=== PATIENT | female | born 1965 | race Caucasian/White ===

== ENCOUNTER 2018-02-14 16:01 | Inpatient (IN) | payer OTHER, MEDICAID ==
--- NOTE | 2018-02-14 16:26 | EDPHY ---
H & P Stated Complaint: R lower leg wound swelling - Personal History Current Tetanus Diphtheria and Acellular Pertussis (TDAP): No - Medical/Surgical History Hx Asthma: No Hx Chronic Respiratory Disease: No Hx Diabetes: Yes Hx Cardiac Disease: Yes Hx Renal Disease: No Hx Cirrhosis: No Hx Alcoholism: No Hx HIV/AIDS: No Hx Splenectomy or Spleen Trauma: No Other PMH: CHF IDDM neuropathy - Social History Smoking Status: Never smoked Time Seen by Provider: 02/14/18 16:09 HPI/ROS: CHIEF COMPLAINT: "My leg looks worse and smells worse" HISTORY OF PRESENT ILLNESS: 52-year-old female history of peripheral vascular disease, dhv-byxaawk-bqchzxilf diabetes, complaining of 2-3 months of right calf lesion which has been slow to heal. She last saw her primary care provider 5 days ago for same complaint and notes that in the past 5 days as present, progressively more erythematous and more foul-smelling as well as more painful. PRIMARY CARE PROVIDER: Dr. Adis Tyler REVIEW OF SYSTEMS: 10 systems reviewed and negative with the exception of the elements mentioned in the history of present illness PAST MEDICAL & SURGICAL HISTORY: Insulin-dependent diabetes. Gastric bypass. SOCIAL HISTORY: . Nonsmoker. PHYSICAL EXAM (Prior to examination, patient consented to physical exam, hands were washed and my usual and customary physical exam procedures followed) 1) GENERAL: obese, alert and oriented. Foul smell present in room. Appears to be in no acute distress. Answering questions appropriately 2) HEAD: Normocephalic, atraumatic 3) HEENT: Pupils equal, round, reactive to light bilaterally. Sclera anicteric. 4) NECK: Full range of motion, no meningeal signs. 5) LUNGS: Clear auscultation bilaterally, no wheezes, no rhonchi, no retractions. 6) HEART: Regular rate and rhythm, no murmur, no heave, no gallop. 7) ABDOMEN: No guarding, no rebound, no focal tenderness, negative McBurney's, negative Hudson's, negative Rovsing's, negative peritoneal sign, 8) MUSCULOSKELETAL: Right lower extremity: Right medial and posterior calf region multiple erythematous lesions at different stages of healing with drainage and foul smell. No crepitus. DP pulses are appreciable. Capillary refill less than 2 sec. Soft compartments., otherwise Moving all extremities, no focal areas of tenderness, no obvious trauma. No peripheral edema or discoloration. 9) BACK: No CVA tenderness, no midline vertebral tenderness, no fluctuance, no step-off, no obvious trauma, no visual or palpable abnormality. 10) SKIN: No rash, no petechiae. 11) Psychiatric: Patient is oriented X 3, there is no agitation. 12) rectal (with tech Francisca at bedside): Normal rectal tone, brown stool on glove DIFFERENTIAL DIAGNOSIS: In no particular order including but not limited to cellulitis, abscess, necrotizing fasciitis, compartment syndrome, osteomyelitis (Garret,William Dooley) Constitutional: Initial Vital Signs Temperature (C) 36.7 C 02/14/18 16:14 Heart Rate 91 02/14/18 16:14 Respiratory Rate 18 02/14/18 16:14 Blood Pressure 135/79 H 02/14/18 16:14 O2 Sat (%) 95 02/14/18 16:14 O2 Delivery Mode Nasal Cannula O2 (L/minute) 3 Allergies/Adverse Reactions: latex Allergy (Unknown, Verified 02/14/18 16:48) trouble breathing morphine Allergy (Unknown, Verified 02/14/18 16:49) hives, trouble breathing neosponin Allergy (Unknown, Uncoded 06/02/17 14:08) blisters Home Medications: Medication Instructions Recorded Allopurinol [Allopurinol 100 MG 200 mg PO BID 02/14/18 (*)] Cephalexin [Keflex (*)] 500 mg PO QID 02/14/18 Fluconazole [Diflucan (*)] 150 mg PO Q2D 02/14/18 Furosemide [Lasix 40 MG (*)] 40 mg PO DAILY 02/14/18 Gabapentin [Neurontin 100 MG (*)] 100 mg PO TID 02/14/18 HYDROmorphone HCL [Dilaudid 2 mg 2 mg PO TID PRN 02/14/18 (*)] Insulin Aspart [novoLOG] 10 unit SC AC 02/14/18 Insulin Detemir [Levemir] 20 unit SQ HS 02/14/18 Lansoprazole [Prevacid] 30 mg PO HS 02/14/18 Ondansetron Odt [Zofran Odt 4 mg 4 mg PO AC 02/14/18 (*)] Potassium Cl [Klor-Con 20 meq (*)] 40 meq PO DAILY 02/14/18 Ziprasidone HCl [Geodon 40MG (*)] 160 mg PO HS 02/14/18 busPIRone [Buspar (*)] 10 mg PO TID 02/14/18 hydrOXYzine HCL [hydrOXYzine HCL 25 mg PO Q3WA PRN 02/14/18 (RX)] lamoTRIgine [LamICTAL 100 MG (*)] 300 mg PO HS 02/14/18 oxyCODONE HCL [Roxicodone] 7.5 mg PO Q3WA PRN 02/14/18 oxyCODONE IR [Oxycodone Ir (*)] 10 mg PO TID 02/14/18 Medical Decision Making ED Course/Re-evaluation: 4:50 p.m.: I reviewed the patient's medical records from [facility] dated 01/25/2018 which point she had x-ray of the tibia fibula negative for acute bony abnormality and no DVT seen on ultrasound however was noted that calf veins were unable to visualize secondary to overlying soft tissue edema. White count of 6000 at that time, hemoglobin and hematocrit of 7.7 and 27.6. She was given prescription for Keflex discharged. 5:24 p.m.: Re-evaluation. No definitive evidence of osteomyelitis on x-ray. Of concerned this patient is her progressively worsening right lower extremity erythema, foul smell. I recommended admission to hospital for IV antibiotics, possible wound debridement possible infectious disease consultation. Patient is agreeable with this. Care of patient under supervision of secondary supervising physician Dr Anthony with whom I discussed case. 5:41 p.m.: Patient requesting Dilaudid and Phenergan 5:50 p.m.: Consultation with Dr. Kaushal Yao hospitalist to admit patient. ( William Combs) I did not see this patient while she was in the emergency department. However her care was discussed with the PA while the patient was in the department. I agree with treatment plan and management (Azar Anthony) - Data Points Laboratory Results: Laboratory Results 02/14/18 16:08 02/14/18 16:08 Microbiology Results: MICROBIOLOGY 02/14/18 17:20 Blood Blood Culture - Preliminary Staphylococcus Epidermidis 02/14/18 17:20 Blood Blood Panel (PCR) - Final 02/14/18 17:40 Blood Blood Culture - Final Streptococcus Sanguinis MRSA 02/14/18 17:40 Blood Blood Panel (PCR) - Final MRSA Streptococcus Medications Given: Allopurinol (Allopurinol) 200 mg PO BID [facility] Stop: 08/13/18 20:59 Last Admin: 02/17/18 09:08 Dose: 200 mg Buspirone HCl (Buspar) 10 mg PO TID [facility] Stop: 08/13/18 21:59 Last Admin: 02/17/18 09:08 Dose: 10 mg Diphenhydramine HCl (Benadryl Injection) 12.5 - 25 mg IVP Q4HRS PRN PRN Reason: Itching Stop: 08/14/18 05:30 Last Admin: 02/15/18 05:42 Dose: 25 mg Enoxaparin Sodium (Lovenox) 40 mg SC DAILY [facility] Stop: 08/14/18 08:59 Last Admin: 02/17/18 09:20 Dose: 40 mg Fentanyl (Sublimaze) 50 - 100 mcg IVP Q4HRS PRN PRN Reason: Pain, Severe Unable to Take PO Stop: 02/25/18 10:03 Last Admin: 02/17/18 09:03 Dose: 100 mcg Fluconazole (Diflucan) 100 mg PO DAILY [facility] Stop: 03/17/18 17:29 Last Admin: 02/17/18 09:08 Dose: 100 mg Furosemide (Lasix) 40 mg PO DAILY [facility] Stop: 08/14/18 08:59 Last Admin: 02/17/18 09:08 Dose: 40 mg Gabapentin (Neurontin) 300 mg PO TID [facility] Stop: 08/13/18 21:59 Last Admin: 02/17/18 09:08 Dose: 300 mg Hydromorphone HCl (Dilaudid) 2 mg PO Q6HRS PRN PRN Reason: Pain, Breakthrough Stop: 02/24/18 19:53 Last Admin: 02/17/18 10:12 Dose: 2 mg Hydroxyzine HCl (Hydroxyzine Hcl) 25 mg PO Q3WA PRN PRN Reason: ITCHING/NERVE PAIN Stop: 08/14/18 09:42 Last Admin: 12/20/18 10:40 Dose: 25 mg Vancomycin HCl 1.5 gm/ (Dextrose) 250 mls @ 166.67 mls/hr IV Q12H [facility] PRN Reason: Protocol Stop: 03/18/18 08:59 Last Admin: 02/17/18 09:13 Dose: 250 mls Insulin Glargine (Lantus Syringe) 22 units SC HS [facility] Stop: 08/13/18 20:59 Last Admin: 02/16/18 23:45 Dose: 22 units Insulin Human Lispro (Humalog Lispro) 0 unit SC TIDMEAL [facility] PRN Reason: Protocol Stop: 08/14/18 07:59 Last Admin: 02/17/18 12:35 Dose: 6 units Lamotrigine (Lamictal) 300 mg PO HS [facility] Stop: 08/13/18 20:59 Last Admin: 02/16/18 23:44 Dose: 300 mg Ondansetron HCl (Zofran) 4 mg IVP Q4HRS PRN PRN Reason: Nausea/Vomiting, Can't Take PO Stop: 08/13/18 17:46 Last Admin: 02/17/18 13:11 Dose: 4 mg Ondansetron HCl (Zofran Odt) 4 mg PO Q4HRS PRN PRN Reason: Nausea/Vomiting, Use 1st Stop: 08/13/18 17:46 Last Admin: 02/16/18 21:19 Dose: 4 mg Oxycodone HCl (Oxycodone Ir) 7.5 mg PO Q3WA PRN PRN Reason: SEVERE PAIN Stop: 02/27/18 13:49 Last Admin: 02/17/18 14:09 Dose: 7.5 mg Pantoprazole Sodium (Protonix) 40 mg PO HS [facility] Stop: 08/14/18 20:59 Last Admin: 02/16/18 21:23 Dose: 40 mg Potassium Chloride (Klor-Con) 40 meq PO DAILY [facility] Stop: 08/14/18 08:59 Last Admin: 02/17/18 09:08 Dose: 40 meq Ziprasidone (Geodon) 160 mg PO HS [facility] Stop: 08/13/18 20:59 Last Admin: 02/16/18 23:44 Dose: 160 mg Discontinued Medications Gabapentin (Neurontin) 100 mg PO TID [facility] Stop: 08/13/18 21:59 Last Admin: 02/15/18 17:09 Dose: 100 mg Hydromorphone HCl (Dilaudid) 1 mg IVP EDNOW ONE Stop: 02/14/18 17:42 Last Admin: 02/14/18 17:47 Dose: 1 mg Hydromorphone HCl (Dilaudid) 0.4 mg IVP Q4HRS PRN PRN Reason: Pain, Severe Unable to Take PO Stop: 02/24/18 21:29 Last Admin: 02/15/18 02:50 Dose: 0.4 mg Hydromorphone HCl (Dilaudid) 0.5 - 1 mg IVP Q3HRS PRN PRN Reason: Pain, Severe Unable to Take PO Stop: 02/24/18 21:29 Last Admin: 02/15/18 08:58 Dose: 1 mg Cefazolin Sodium/Dextrose (Ancef) 100 mls @ 200 mls/hr IV EDNOW ONE PRN Reason: Protocol Stop: 02/14/18 17:04 Last Admin: 02/14/18 17:34 Dose: 100 mls Vancomycin HCl 1.5 gm/ (Dextrose) 250 mls @ 166.667 mls/hr IV Q12H [facility] Stop: 03/16/18 19:29 Last Admin: 02/14/18 20:01 Dose: 250 mls Vancomycin HCl 1.5 gm/ (Dextrose) 250 mls @ 166.667 mls/hr IV Q12H [facility] Stop: 03/17/18 08:59 Last Admin: 02/15/18 09:05 Dose: 250 mls Cefazolin Sodium/Dextrose (Ancef) 100 mls @ 200 mls/hr IV Q8H [facility] PRN Reason: Protocol Stop: 03/17/18 18:59 Last Admin: 02/16/18 04:06 Dose: 100 mls Insulin Glargine (Lantus Syringe) 20 units SC HS [facility] Stop: 08/13/18 20:59 Last Admin: 02/15/18 20:24 Dose: 20 units Lansoprazole (Prevacid Susp (Peds)) 30 mg PO HS [facility] Stop: 08/13/18 20:59 Last Admin: 02/14/18 20:39 Dose: 30 mg Morphine Sulfate (Morphine) 1 - 2 mg IVP Q1HR PRN PRN Reason: Pain, Severe Unable to Take PO Stop: 02/24/18 19:32 Last Admin: 02/15/18 07:48 Dose: 2 mg Promethazine HCl (Phenergan) 25 mg IVP EDNOW ONE Stop: 02/14/18 17:42 Last Admin: 02/14/18 17:47 Dose: 25 mg Departure - Departure Disposition: [facility] Inpatient Acute Clinical Impression: Cellulitis of lower extremity Qualifiers: Laterality: right Qualified Code(s): L03.115 - Cellulitis of right lower limb Condition: Fair
[2018-02-14 16:33] LABS: PLATELET COUNT 239 10^3/uL (150-400)
[2018-02-14] MEDS ORDERED: ceFAZolin 2 GM/DEXTROSE 100 ML IV ONE (16:35)
[2018-02-14 16:45] LABS: INR 1.07 (0.83-1.16); PROTIME(PATIENT) 14.1 SEC (12.0-15.0)
[2018-02-14] MEDS ORDERED: HYDROmorphONE/DILAUDID 1 MG/ML INJ IVP ONE (17:41)
[2018-02-14] MEDS ORDERED: PROMETHAZINE HCL 25 MG/ML INJ IVP ONE (17:41)
[2018-02-14] MEDS ORDERED: ACETAMINOPHEN 325 MG TAB PO PRN (17:47)
--- NOTE | 2018-02-14 19:10 | PDGENHP ---
History and Physical - Chief Complaint Right leg swelling, redness, and weeping wound - History of Present Illness 52 y/o female with an extensive history including diabetes and recurrent cellulitis presents to the emergency room with right leg erythema, edema, and purulent weeping wound. This is my first encounter with the pt. She was seen in the emergency room and in no apparent respiratory distress however she did seem uncomfortable with her leg, especially movement of her leg. Per pt, 3 months ago her right daniels/calf region was red, swollen and painful. D/t the reoccurrence, f/u'ed with Dr. Azar Bello and was placed on suppressive amoxicillin 500 mg BID for 30 days. Because she has recurrent vaginitis while on antibiotic therapy, she was also instructed to take fluconazole 150 mg Q3 days. As stated before, the pt presents with an increase in swelling, edema, and weeping wound. Doppler was negative for DVT. Tibia/fibula x-ray was negative for any erosive changes or bone abnormalities. She is being admitted for further diagnostic work-up of her right lower extremity. Vital Signs 151/75 81 HR 16 Respirations 36.7c 97% 3L NC (baseline for pt, wears oxygen d/t CHF) History Information - Allergies/Home Medication List Allergies/Adverse Reactions: latex Allergy (Unknown, Verified 02/14/18 16:48) trouble breathing morphine Allergy (Unknown, Verified 02/14/18 16:49) hives, trouble breathing neosponin Allergy (Unknown, Uncoded 06/02/17 14:08) blisters Home Medications: Allopurinol [Allopurinol 100 MG (*)] 200 mg PO BID 02/14/18 [Last Taken 08:00] Cephalexin [Keflex (*)] 500 mg PO QID 02/14/18 [Last Taken 02/14/18 12:00] Fluconazole [Diflucan (*)] 150 mg PO Q2D 02/14/18 [Last Taken 02/13/18] Furosemide [Lasix 40 MG (*)] 40 mg PO DAILY 02/14/18 [Last Taken 02/13/18] Gabapentin [Neurontin 100 MG (*)] 100 mg PO TID 02/14/18 [Last Taken 02/14/18 12 :00] HYDROmorphone HCL [Dilaudid 2 mg (*)] 2 mg PO TID PRN 02/14/18 [Last Taken Unknown] Insulin Aspart [novoLOG] 10 unit SC AC 02/14/18 [Last Taken 02/14/18 12:00] Insulin Detemir [Levemir] 20 unit SQ HS 02/14/18 [Last Taken 02/13/18] Lansoprazole [Prevacid] 30 mg PO HS 02/14/18 [Last Taken 02/13/18] Ondansetron Odt [Zofran Odt 4 mg (*)] 4 mg PO AC 02/14/18 [Last Taken 02/14/18 12:00] Potassium Cl [Klor-Con 20 meq (*)] 40 meq PO DAILY 02/14/18 [Last Taken 02/13/18 ] Ziprasidone HCl [Geodon 40MG (*)] 160 mg PO HS 02/14/18 [Last Taken 02/13/18] busPIRone [Buspar (*)] 10 mg PO TID 02/14/18 [Last Taken 02/12/18] hydrOXYzine HCL [hydrOXYzine HCL (RX)] 25 mg PO Q3WA PRN 02/14/18 [Last Taken ] lamoTRIgine [LamICTAL 100 MG (*)] 300 mg PO HS 02/14/18 [Last Taken 02/13/18] oxyCODONE HCL [Roxicodone] 7.5 mg PO Q3WA PRN 02/14/18 [Last Taken 02/14/18] oxyCODONE IR [Oxycodone Ir (*)] 10 mg PO TID 02/14/18 [Last Taken 02/14/18] I have personally reviewed and updated: family history, medical history, social history, surgical history Past Medical History: Diabetes II, Hypothyroidism, B12 deficiency, Gout, Generalized Anxiety Disorder, Opiate dependence, Chronic systolic CHF, Chronic hypoxemic respiratory failure, ventral hernia, fatty liver disease, Chronic cellulitis, Sleep apnea, Bipolar disorder, intestinal malabsorption, morbid obesity, vitamin d deficiency, nocturnal hypoxia - Surgical History Additional surgical history: Appendectomy, gastric bypass (2000) - Family History Positive for: non-pertinent - Social History Smoking Status: Never smoked Alcohol Use: Rarely Drug Use: None Additional social history: Lives in mobile home with her , Jose. On disability Review of Systems Review of Systems: ROS: 10pt was reviewed & negative except for what was stated in HPI & below Constitutional: Reports: recent injury EENMT: Reports: no symptoms Cardiac: Reports: no symptoms Respiratory: Reports: no symptoms Gastrointestinal: Reports: no symptoms Genitourinary: Reports: no symptoms Muscolosketal: Reports: calf pain Skin: Reports: change in color, lesions, rash Neurological: Reports: pre-existing deficit Hematologic/Lymphatic: Reports: no symptoms Immunologic/Allergy: Reports: no symptoms Physical Exam Physical Exam: Lab data and imaging reviewed Tibia/fibula x-ray: no bone abnormalities. Doppler: No DVT. Temp Pulse Resp BP Pulse Ox 36.7 C 85 16 148/80 H 99 02/14/18 18:26 02/14/18 18:26 02/14/18 18:26 02/14/18 18:26 02/14/18 18:26 O2 (L/minute) 3 Constitutional: obese, uncomfortable Eyes: PERRL, anicteric sclera, EOMI Ears, Nose, Mouth, Throat: moist mucous membranes, hearing normal, ears appear normal, no oral mucosal ulcers Cardiovascular: regular rate and rhythym, no murmur, rub, or gallop, No edema Peripheral Pulses: 1+: dorsalis-pedis (R) (Radial 2+), 2+: dorsalis-pedis (L) ( Radial 2+) Respiratory: no respiratory distress, no rales or rhonchi, clear to auscultation Gastrointestinal: normoactive bowel sounds, soft, non-tender abdomen, no palpable masses Genitourinary: no bladder fullness, no bladder tenderness Skin: erythema, rash, other (right medial daniels with purulent weeping wound and posterior calf. Warm) Musculoskeletal: pain with ROM (RLE) Psychiatric: interacting appropriately, not anxious, not encephalopathic, thought process linear Lymph, Heme, Immunologic: no cervical LAD, no supraclavicular LAD Lab Data & Imaging Review 02/14/18 16:08 02/14/18 16:08 WBC 8.45 10^3/uL (3.80-9.50) 02/14/18 16:08 RBC 4.11 10^6/uL (4.18-5.33) L 02/14/18 16:08 Hgb 7.4 g/dL (12.6-16.3) L 02/14/18 16:08 Hct 26.4 % (38.0-47.0) L 02/14/18 16:08 MCV 64.2 fL (81.5-99.8) L 02/14/18 16:08 MCH 18.0 pg (27.9-34.1) L 02/14/18 16:08 MCHC 28.0 g/dL (32.4-36.7) L 02/14/18 16:08 RDW 18.9 % (11.5-15.2) H 02/14/18 16:08 Plt Count 239 10^3/uL (150-400) 02/14/18 16:08 MPV 8.9 fL (8.7-11.7) 02/14/18 16:08 Neut % (Auto) 69.2 % (39.3-74.2) 02/14/18 16:08 Lymph % (Auto) 21.9 % (15.0-45.0) 02/14/18 16:08 [place] % (Auto) 7.3 % (4.5-13.0) 02/14/18 16:08 Eos % (Auto) 0.6 % (0.6-7.6) 02/14/18 16:08 Baso % (Auto) 0.6 % (0.3-1.7) 02/14/18 16:08 Nucleat RBC Rel Count 0.0 % (0.0-0.2) 02/14/18 16:08 Absolute Neuts (auto) 5.85 10^3/uL (1.70-6.50) 02/14/18 16:08 Absolute Lymphs (auto) 1.85 10^3/uL (1.00-3.00) 02/14/18 16:08 Absolute Monos (auto) 0.62 10^3/uL (0.30-0.80) 02/14/18 16:08 Absolute Eos (auto) 0.05 10^3/uL (0.03-0.40) 02/14/18 16:08 Absolute Basos (auto) 0.05 10^3/uL (0.02-0.10) 02/14/18 16:08 Absolute Nucleated RBC 0.00 10^3/uL (0-0.01) 02/14/18 16:08 Immature Gran % 0.4 % (0.0-1.1) 02/14/18 16:08 Immature Gran # 0.03 10^3/uL (0.00-0.10) 02/14/18 16:08 Platelet Estimate ADEQUATE (ADEQ) 02/14/18 16:08 Polychromasia 1+ H 02/14/18 16:08 Microcytic Cells 2+ H 02/14/18 16:08 PT 14.1 SEC (12.0-15.0) 02/14/18 16:08 INR 1.07 (0.83-1.16) 02/14/18 16:08 APTT 29.1 SEC (23.0-38.0) 02/14/18 16:08 VBG Lactic Acid 2.5 mmol/L (0.7-2.1) H 02/14/18 17:40 Sodium 133 mEq/L (135-145) L 02/14/18 16:08 Potassium 4.7 mEq/L (3.5-5.2) 02/14/18 16:08 Chloride 95 mEq/L (97-110) L 02/14/18 16:08 Carbon Dioxide 23 mEq/l (22-31) 02/14/18 16:08 Anion Gap 15 mEq/L (6-14) H 02/14/18 16:08 BUN 12 mg/dL (7-23) 02/14/18 16:08 Creatinine 1.0 mg/dL (0.6-1.0) 02/14/18 16:08 Estimated GFR 59 02/14/18 16:08 Glucose 178 mg/dL (70-100) H 02/14/18 16:08 Calcium 8.9 mg/dL (8.5-10.4) 02/14/18 16:08 Total Bilirubin 0.7 mg/dL (0.1-1.4) 02/14/18 16:08 Beta HCG, Qual NEGATIVE 02/14/18 Unknown Stool Occult Bld Scrn NEGATIVE (NEGATIVE) 02/14/18 17:31 Assessment & Plan Plan: 52 y/o female with extensive medical past, most notably and revelant is diabetes and reoccuring cellulitis, presents with acute cellulitis of the right lower extremity. 1. Acute cellulitis -Consult ID; spoke to Dr. Bello who will evaluate the pt tomorrow -Order for surgery to consult; would recommend calling surgery tomorrow for an evaluation of possible debridement -Would culture pending -Blood culture pending -Received Ancef in ED; will receive Vancomycin Q12 -Pain management PO/IVP PRN; does have opiate dependence; Dilaudid PO TID can be given. Holding other home opiates for the time being with concerns of respiratory depression considering the amount of opioids she is taking. Monitor for withdrawal. 2. Microcytic anemia -It appears this has been chronic at least since October 2017. She denies fatigue or lightheadedness. -Stool occult negative -Iron panel tomorrow 3. Diabetes -Recent A1c (02/10/18) was 7.4% -Insulin Lispro sliding scale -Lantus 20 units HS Diet: Carb-controlled VTE ppx: Lovenox Code: Full Dispo: Admit to obs
[2018-02-14] MEDS ORDERED: VANCOMYCIN 1.5 GM in D5W 250 ML IV SCH (19:30)
--- NOTE | 2018-02-14 19:40 | HOSPPROG ---
Hospitalist Progress Note Assessment/Plan: I have personally seen and evaluated Lary Hernandez. I agree with the assessment and plan outlined by PA, Gail Plata, in a separate note. Objective: Vital Signs Temp Pulse Resp BP Pulse Ox 36.7 C 85 16 148/80 H 99 02/14/18 18:26 02/14/18 18:26 02/14/18 18:26 02/14/18 18:26 02/14/18 18:26 PT 14.1 SEC (12.0-15.0) 02/14/18 16:08 INR 1.07 (0.83-1.16) 02/14/18 16:08 ICD10 Worksheet Patient Problems: Problems Problem Status Onset Cellulitis of lower extremity Acute - ICD10 Problem Qualifiers (1) Cellulitis of lower extremity
[2018-02-14] MEDS ORDERED: HYDROmorphONE/DILAUDID 2 MG TAB PO PRN (19:54)
[2018-02-14] MEDS ORDERED: D50W 25 GM/50 ML SYR IVP PRN (20:01)
[2018-02-14] MEDS: ONDANSETRON 4 MG/2 ML VIAL IVP PRN (20:36)
[2018-02-14] MEDS: ALLOPURINOL 100 MG TAB PO SCH (20:40)
[2018-02-14] MEDS: busPIRone 10 MG TAB PO SCH (20:40)
[2018-02-14] MEDS: lamoTRIgine 100 MG TAB PO SCH (20:40)
[2018-02-14] MEDS: GABAPENTIN 100 MG CAP PO SCH (20:40)
[2018-02-14] MEDS: ZIPRASIDONE HCL 40 MG CAP PO SCH (20:40)
[2018-02-14] MEDS ORDERED: LANSOPRAZOLE SUSP 3 MG/ML UDSYR (Peds) PO SCH (21:00)
[2018-02-14] MEDS: HYDROmorphONE/DILAUDID 1 MG/ML INJ IVP PRN (21:40)
[2018-02-14] MEDS: INSULIN GLARGINE 100 UNITS/ML UNIT SC SCH (21:45)
[2018-02-14] MEDS ORDERED: oxyCODONE IR 5 MG TAB PO SCH (22:00)
[2018-02-15] MEDS: HYDROmorphONE/DILAUDID 1 MG/ML INJ IVP PRN ×3 (02:50→08:58)
[2018-02-15] MEDS ORDERED: NALOXONE HCL 0.4 MG/ML INJ IVP PRN (05:09)
[2018-02-15] MEDS: HYDROmorphONE/DILAUDID 2 MG TAB PO PRN ×3 (05:43→17:58)
--- NOTE | 2018-02-15 07:16 | PDMN ---
Medical Necessity Medical necessity: [facility] [place] M70 cellulitis: acute cellulitis - R leg erythema, edema and purulent weeping of wound- has been on amoxicillin X 30 days, failed outpt with sgy consult pend., I/D consult pend., . microcytic anemia, DM. PMHx : DMII, hypothyroidism, B12 def. gout, anxiety, fatty liver disease, chronic cellulitis, KO, bipolar, intestinal malabsorption, morbid obesity, vit D def. nocturnal hypoxia anticipate > 2 MN ongoing med nec care, further monitoring, eval and tx of cellulitis. IV antiemetic's, IV pain,
[2018-02-15] MEDS: INSULIN LISPRO 100 UNIT/ML SC SCH ×3 (07:59→17:58)
--- NOTE | 2018-02-15 08:18 | ASMTLACE ---
KRISTIN Acuity / Level of Answers: Yes Care: Did the patient have an inpatient admission? Comorbidities - select Answers: Congestive heart failure all that apply Diabetes (uncontrolled or controlled) Opioid dependence / Chronic pain Peripheral vascular disease Other Notes: Hypothyroid # of Emergency department Answers: 1-2 visits in the last 6 months Social determinants Answers: Mental health diagnosis (anxiety, depression, pers onality disorders, etc.) Score: 16 Date Signed: 02/15/2018 08:17 AM Electronically Signed By:Baylee Mcarthur
[2018-02-15 08:46] LABS: PLATELET COUNT 203 10^3/uL (150-400)
[2018-02-15] MEDS: ONDANSETRON 4 MG/2 ML VIAL IVP PRN ×3 (08:58→22:37)
[2018-02-15] MEDS ORDERED: VANCOMYCIN 1.5 GM in D5W 250 ML IV SCH (09:00)
[2018-02-15] MEDS: POTASSIUM CL 20 MEQ TAB PO SCH (09:10)
[2018-02-15] MEDS: GABAPENTIN 100 MG CAP PO SCH ×3 (09:10→20:19)
[2018-02-15] MEDS: FUROSEMIDE 40 MG TAB PO SCH (09:10)
[2018-02-15] MEDS: ALLOPURINOL 100 MG TAB PO SCH ×2 (09:11→20:20)
[2018-02-15] MEDS: ENOXAPARIN 40 MG/0.4 ML SYR SC SCH (09:14)
--- NOTE | 2018-02-15 09:50 | HOSPPROG ---
Hospitalist Progress Note Assessment/Plan: # RLE cellulitis - likely d/t venous insufficiency, occurred while on keflex - cont vanc - ID consult - wound care consult # morbid obesity # hx gastric bypass - potentially impairing PO absorption # anemia - transfuse 1U PRBC; suspect chronic oozing from leg # reported CHF - check echo to further characterize R vs L, systolic etc # DM2 - cont insulin at current doses, may need to increase Subjective: c/o severe pain and asked 3 times for more narcotics; also c/o pruritus Objective: Vital Signs Temp Pulse Resp BP Pulse Ox 37.1 C 89 18 131/62 H 97 02/15/18 07:55 02/15/18 07:55 02/15/18 07:55 02/15/18 07:55 02/15/18 07:55 Microbiology 02/14/18 23:58 Gram Stain - Final Leg - Anaerobic Tube/Swab Laboratory Results 02/15/18 08:39 02/15/18 08:39 02/14/18 02/15/18 02/16/18 05:59 05:59 05:59 Intake Total 700 Balance 700 PT 14.1 SEC (12.0-15.0) 02/14/18 16:08 INR 1.07 (0.83-1.16) 02/14/18 16:08 chart reviewed discussed with Dr Pickering - she will consult - Physical Exam Constitutional: obese Cardiovascular: regular rate and rhythym, systolic murmur, No irregularly irregular, No diastolic murmur, No tachycardia, No bradycardia Respiratory: no respiratory distress, no rales or rhonchi, clear to auscultation Gastrointestinal: soft, non-tender abdomen, no palpable masses, No guarding, No rebound Musculoskeletal: other (R leg with significant scaling, edema, erythema; weeping on posterior calf) ICD10 Worksheet Patient Problems: Problems Problem Status Onset Cellulitis of lower extremity Acute
[2018-02-15] MEDS: fentaNYL 100 MCG/2 ML INJ IVP PRN ×4 (10:18→22:39)
[2018-02-15] MEDS: busPIRone 10 MG TAB PO SCH ×3 (10:26→20:20)
--- NOTE | 2018-02-15 10:37 | ASMTCMCOM ---
CM Note CM Note Notes: Chart reviewed for discharge planning purposes. 52 year old female with history of IDDM, obesity, s/p gastric bypass presents to the ED with c/o increasing pain and foul smelling leg wounds. Normally lives independently with her . CM to follow for needs. Plan: TBD Date Signed: 02/15/2018 10:36 AM Electronically Signed By:Sally Morataya RN
[2018-02-15] MEDS: hydrOXYzine HCL 25 MG TAB PO PRN ×4 (10:50→22:42)
--- NOTE | 2018-02-15 14:02 | PCMIDPN ---
Assessment/Plan: Assessment/Plan: * Right lower extremity cellulitis with underlying chronic venous insufficiency/ stasis dermatitis and lymphedema: Appearance most suggestive of beta-hemolytic streptococci although culture obtained showing probable growth of Staph species. No purulence noted on exam today with findings primarily of denuded skin posteriorly with scattered areas of early eschar. Will continue empiric vancomycin pending additional culture data. Recommend elevation of right lower extremity and wound care evaluation to assist with chronic venous insufficiency (patient has not been able to tolerate compression previously and could not stand for venous reflux study). Significant component of exam findings related to underlying venous insufficiency. 02/15/18 14:00 Subjective: Patient known to me from prior outpatient care for recurrent right lower extremity cellulitis with underlying venous insufficiency and lymphedema. Had used suppressive amoxicillin for 3 months due to recurrent nature of symptoms but patient could not tolerate longer term due to symptoms of Millie vaginitis. Now describes having several weeks of increasing right lower extremity swelling and wrinkling of skin. Over the last several days developed increased pain and describes significant drainage from open sores with the most symptomatic area being her posterior calf. Did not experience fever or chills. Patient now has been admitted in started empirically on vancomycin given purulence noted at time of admission. Is not able to elevate her legs significantly. Has not been able to tolerate compression devices previously. Objective: Vital Signs Temp Pulse Resp BP Pulse Ox 37.1 C 99 16 152/70 H 98 02/15/18 12:44 02/15/18 12:44 02/15/18 12:44 02/15/18 12:44 02/15/18 12:44 Microbiology 02/14/18 23:58 Gram Stain - Final Leg - Anaerobic Tube/Swab Laboratory Results 02/15/18 08:39 02/15/18 08:39 02/14/18 02/15/18 02/16/18 05:59 05:59 05:59 Intake Total 700 Output Total 500 Balance 700 -500 Blood cultures x2 pending Wound culture with GPCs in clusters and probable early growth of Staph species Ultrasound without evidence of DVT - Physical Exam General Appearance: alert, no apparent distress, obese EENT: No scleral icterus, No thrush Respiratory: lungs clear, No respiratory distress Cardiac/Chest: regular rate, rhythm Extremities: inflammation (Right lower extremity with 4+ edema, wrinkled furrowed skin throughout, denuded skin over posterior calf with violaceous eschar scattered over area where skin is denuded; mild lichenification over foot ; ulceration over right anterior lateral leg with yellowish drainage/crusting) Lymphatic: other (Tender in right thigh lymphatic distribution without overlying lymphangitis) ICD10 Worksheet Patient Problems: Problems Problem Status Onset Cellulitis of lower extremity Acute
[2018-02-15] MEDS ORDERED: ceFAZolin 2 GM/DEXTROSE 100 ML IV SCH (17:00)
--- NOTE | 2018-02-15 17:47 | WOCRNPDOC ---
WOCRLuis Fernando Advanced Assessment Note - Skin Integrity Problem, Advanced Assess Right Posterior Lower Leg Dressing Type: Open to Air, Other Other Dressing Type: placed on chux Dressing Description: Shadowed Closure Description: Not Approximated Exudate Amount: Moderate Exudate Color: Yellow Exudate Characteristic(s): Serous Integumentary Issue Intervention: Lotion/Cream Applied, Mechanical Debridement Olamide Wound Tissue: Erythema, Swollen, Weeping, Denuded, Venous Dermatitis, Lichenification, Painful/Tender Olamide Wound Swelling: Severe Wound Bed Color: Black, Peebles Wound Bed Constitution: Red/Peebles - Non Granular Tissue, Stable Eschar Wound Edges: Attached, Well Defined, Irregular Site Measurement - Head-to-Toe Length X Width X Depth (cm): 18x8x.02 Skin Integrity Problem Comment: Patient with severe swelling to right lower extremity. Patient states this has been a recurrent infection. Patient rolled to her left side unassisted. Large venous stasis wound noted to posterior right lower leg. In the lateral aspect of the wound, a large area of necrosis is noted. Leg cleaned with foaming cleanser and exfoliated with warm washcloths to patient tolerance. Discussed with the patient the need for compression. She is unwilling to consider this option for her right leg but did agree to try it on the left leg. Spandagrip size E tubed to floor for patient's left leg. Right Lower Lateral Leg Venous Stasis Ulcer Dressing Type: Open to Air, Other Other Dressing Type: chux underneath Closure Description: Not Approximated Exudate Amount: Moderate Exudate Color: Yellow Exudate Characteristic(s): Serous Integumentary Issue Intervention: Lotion/Cream Applied, Mechanical Debridement Olamide Wound Tissue: Erythema, Swollen, Denuded, Venous Dermatitis, Lichenification, Painful/Tender Olamide Wound Swelling: Severe Wound Bed Color: Yellow Wound Bed Constitution: Mixed Loose & Adhered Slough/Eschar Wound Edges: Attached, Well Defined Site Measurement - Head-to-Toe Length X Width X Depth (cm): [id number] Skin Integrity Problem Comment: Leg cleaned with foaming cleanser and dry skin exfoliated to patient tolerance. Will initiate orders to debride wound bed and absorb moisture. Ultimately, this leg will need compression but patient has refused it in the past. Right Heel Pressure Injury Dressing Type: Open to Air Olamide Wound Tissue: Intact, Painful/Tender Wound Bed Color: Purple, Red Site Measurement - Head-to-Toe Length X Width X Depth (cm): [id number] Pressure Injury Stage: Deep Tissue Injury (DTI) Pressure Injury Present on Admit: Yes Skin Integrity Problem Comment: During my assessment of patient's right leg, she asked me to look at her right heel because it was "painful". Patient with deep, dark purple tissue to plantar surface of heel and to posterior heel. Patient unable to describe how she obtained the wound although does say that she "told them in the ED", indicating that it was present on admission. Ideally , patient will tolerate heel boots to protect this area but I think this is unlikely. Heel needs to be floated off pillows. Wound care will continue to follow. Right Ischial Tuberosity Pressure Injury Dressing Type: Open to Air Olamide Wound Tissue: Non-blanching, Painful/Tender Wound Bed Color: Red Site Measurement - Head-to-Toe Length X Width X Depth (cm): [id number] Pressure Injury Stage: Stage 4 Pressure Injury Present on Admit: Yes Skin Integrity Problem Comment: Patient indicates that she has had stage 4 pressure injury to this area. Skin is currently intact but non-blanching. Initiate pressure relieving measures, including upgraded surface. In discussion with SANDY Gifford, patient qualifies for Envella bed but likely won't tolerate. Will order P500 surface. Left Ischial Tuberosity Pressure Injury Dressing Type: Open to Air Olamide Wound Tissue: Non-blanching, Intact Wound Bed Color: Red Site Measurement - Head-to-Toe Length X Width X Depth (cm): [id number] Pressure Injury Stage: Stage 4 Pressure Injury Present on Admit: Yes
[2018-02-15] MEDS: FLUCONAZOLE 100 MG TAB PO SCH (18:52)
[2018-02-15] MEDS: ceFAZolin 2 GM/DEXTROSE 100 ML IV SCH (20:19)
[2018-02-15] MEDS: PANTOPRAZOLE SODIUM 40 MG TAB PO SCH (20:20)
[2018-02-15] MEDS: ZIPRASIDONE HCL 40 MG CAP PO SCH (20:20)
[2018-02-15] MEDS: lamoTRIgine 100 MG TAB PO SCH (20:24)
[2018-02-15] MEDS: INSULIN GLARGINE 100 UNITS/ML UNIT SC SCH (20:24)
[2018-02-15] MEDS: ONDANSETRON DISINTEGRATING 4 MG TAB PO PRN (21:16)
[2018-02-16] MEDS: ceFAZolin 2 GM/DEXTROSE 100 ML IV SCH (04:06)
[2018-02-16] MEDS: fentaNYL 100 MCG/2 ML INJ IVP PRN ×3 (07:16→21:24)
[2018-02-16] MEDS: INSULIN LISPRO 100 UNIT/ML SC SCH ×3 (08:41→18:02)
[2018-02-16] MEDS: FUROSEMIDE 40 MG TAB PO SCH (08:43)
[2018-02-16] MEDS: FLUCONAZOLE 100 MG TAB PO SCH (08:43)
[2018-02-16] MEDS: POTASSIUM CL 20 MEQ TAB PO SCH (08:43)
[2018-02-16] MEDS: ALLOPURINOL 100 MG TAB PO SCH ×2 (08:44→21:24)
[2018-02-16] MEDS: busPIRone 10 MG TAB PO SCH ×3 (08:44→21:23)
[2018-02-16] MEDS: ENOXAPARIN 40 MG/0.4 ML SYR SC SCH (08:44)
[2018-02-16] MEDS: GABAPENTIN 100 MG CAP PO SCH ×3 (08:44→21:23)
[2018-02-16] MEDS: hydrOXYzine HCL 25 MG TAB PO PRN ×3 (09:15→21:20)
[2018-02-16] MEDS: HYDROmorphONE/DILAUDID 2 MG TAB PO PRN ×3 (10:09→23:43)
[2018-02-16] MEDS: VANCOMYCIN 1.5 GM in D5W 250 ML IV SCH ×2 (10:18→21:24)
--- NOTE | 2018-02-16 15:19 | HOSPPROG ---
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 # reported CHF Not in exacerbation - unclear if systolic/diastolic. # DM2 - with Hyperglycemia -increase Lantus -check A1C -Cont ISS #Millie Vaginitis: on Fluconazole #Chronic Pain Syndrome Subjective: requiring Fentanyl for pain mgmt, but currrently pain is well controlled. Afebrile. no cp or sob. Objective: Vital Signs Temp Pulse Resp BP Pulse Ox 36.9 C 95 20 134/74 H 98 02/16/18 12:08 02/16/18 12:08 02/16/18 12:08 02/16/18 12:08 02/16/18 12:08 Microbiology 02/14/18 23:58 Gram Stain - Final Leg - Anaerobic Tube/Swab Laboratory Results 02/15/18 08:39 02/16/18 04:25 02/15/18 02/16/18 02/17/18 05:59 05:59 05:59 Intake Total 700 2750 Output Total 3300 Balance 700 -550 PT 14.1 SEC (12.0-15.0) 02/14/18 16:08 INR 1.07 (0.83-1.16) 02/14/18 16:08 - Physical Exam Constitutional: no apparent distress Eyes: PERRL Ears, Nose, Mouth, Throat: moist mucous membranes, hearing normal Cardiovascular: regular rate and rhythym, edema Respiratory: no respiratory distress, no rales or rhonchi, clear to auscultation Gastrointestinal: normoactive bowel sounds, soft, non-tender abdomen Skin: warm Neurologic: AAOx3 Psychiatric: interacting appropriately, not anxious, not encephalopathic Lymph, Heme, Immunologic: No petechiae ICD10 Worksheet Patient Problems: Problems Problem Status Onset Cellulitis of lower extremity Acute
--- NOTE | 2018-02-16 18:04 | PCMIDPN ---
Assessment/Plan: Assessment/Plan: * MRSA bacteremia due to right lower extremity cellulitis with underlying chronic venous insufficiency/stasis dermatitis and lymphedema: Blood culture showing growth of MRSA as well as alpha hemolytic strep. Alpha hemolytic strep may represent contaminant rather than true pathogen although will require further identification to fully define. Cellulitic component markedly improved today. Will repeat blood cultures to assess for clearing of bacteremia. Have resumed vancomycin given isolation of MRSA with plans for vancomycin trough tomorrow and continued followup creatinine. Patient describes having echocardiogram performed although no report available. Will need review this tomorrow to ensure echocardiogram has been done in the setting of MRSA bacteremia. Will not provide targeted therapy for gram-negative perfecto obtain from wound cultures these likely represent colonization rather than true pathogens given clinical improvement with antibiotic therapy targeting gram- positive organisms. 02/16/18 18:00 02/16/18 18:03 02/16/18 18:04 Subjective: Patient with significantly decreased right lower extremity pain. Notes she has been out of bed. She is motivated to go home before Rosie. Objective: Vital Signs Temp Pulse Resp BP Pulse Ox 37.2 C 102 H 16 130/66 H 98 02/16/18 16:00 02/16/18 16:00 02/16/18 16:00 02/16/18 16:00 02/16/18 16:00 Microbiology 02/14/18 23:58 Gram Stain - Final Leg - Anaerobic Tube/Swab Laboratory Results 02/15/18 08:39 02/16/18 04:25 02/15/18 02/16/18 02/17/18 05:59 05:59 05:59 Intake Total 700 2750 900 Output Total 3300 1700 Balance 700 -550 -800 Vancomycin # 2 Blood cultures 2/2 MRSA, 1/2 alpha hemolytic strep Wound culture MRSA, Gram-negative rods x2 - Physical Exam General Appearance: alert, no apparent distress, obese EENT: No scleral icterus, No conjunctival petechiae Respiratory: lungs clear, No respiratory distress Cardiac/Chest: regular rate, rhythm, systolic murmur (2/6 left and right upper sternal border) Extremities: inflammation (Right lower extremity with significantly decreased intensity of erythema and edema; denuded area over posterior calf with clean base; denuded skin over lateral leg with clean base; venous stasis dermatitis and scattered scabbing present) Skin: No embolic lesions ICD10 Worksheet Patient Problems: Problems Problem Status Onset Cellulitis of lower extremity Acute
[2018-02-16] MEDS: ONDANSETRON DISINTEGRATING 4 MG TAB PO PRN (21:19)
[2018-02-16] MEDS: PANTOPRAZOLE SODIUM 40 MG TAB PO SCH (21:23)
[2018-02-16] MEDS: ONDANSETRON 4 MG/2 ML VIAL IVP PRN (23:21)
[2018-02-16] MEDS: ZIPRASIDONE HCL 40 MG CAP PO SCH (23:44)
[2018-02-16] MEDS: lamoTRIgine 100 MG TAB PO SCH (23:44)
[2018-02-16] MEDS: INSULIN GLARGINE 100 UNITS/ML UNIT SC SCH (23:45)
[2018-02-17 06:24] LABS: PLATELET COUNT 202 10^3/uL (150-400)
[2018-02-17] MEDS: fentaNYL 100 MCG/2 ML INJ IVP PRN ×2 (09:03→18:11)
[2018-02-17] MEDS: FLUCONAZOLE 100 MG TAB PO SCH (09:08)
[2018-02-17] MEDS: FUROSEMIDE 40 MG TAB PO SCH (09:08)
[2018-02-17] MEDS: ALLOPURINOL 100 MG TAB PO SCH ×2 (09:08→22:08)
[2018-02-17] MEDS: POTASSIUM CL 20 MEQ TAB PO SCH (09:08)
[2018-02-17] MEDS: GABAPENTIN 100 MG CAP PO SCH ×3 (09:08→22:08)
[2018-02-17] MEDS: busPIRone 10 MG TAB PO SCH ×3 (09:08→22:09)
[2018-02-17] MEDS: ENOXAPARIN 40 MG/0.4 ML SYR SC SCH (09:20)
[2018-02-17] MEDS: HYDROmorphONE/DILAUDID 2 MG TAB PO PRN (10:12)
[2018-02-17] MEDS: INSULIN LISPRO 100 UNIT/ML SC SCH ×3 (10:40→19:45)
[2018-02-17] MEDS: hydrOXYzine HCL 25 MG TAB PO PRN ×2 (10:40→15:10)
--- NOTE | 2018-02-17 10:59 | PCMIDPN ---
Assessment/Plan: 1. MRSA bacteremia secondary to right lower extremity cellulitis with history of venous stasis/lymphedema and dermatitis: Continue vancomycin as is; trough to be obtained tonight. I did track down her echocardiogram from 2 days ago; it has not yet been read by Cardiology for unclear reasons. This will be done this afternoon. Suspicion for endocarditis is low. Hold off on PICC line until blood cultures are documented to be clear at 48 hr (repeat blood cultures drawn today). Check CMP in the morning. 2. Tongue ulcer: HSV/VZV PCR sent today. 02/17/18 10:59 Subjective: Still having some pain in her right lower extremity, but overall feels better. Is asking me not to take the Kerlix off of her leg, as it was quite painful when the dressing was changed last night. Denies fevers or shaking chills. No diarrhea. Objective: Vancomycin 1.5 g IV q.12 hours day 3 Fluconazole 100 mg p.o. Daily day 3 T-max 37.2 degrees Vital Signs Temp Pulse Resp BP Pulse Ox 36.6 C 80 12 123/68 H 100 02/17/18 08:18 02/17/18 08:18 02/17/18 08:18 02/17/18 08:18 02/17/18 08:18 Microbiology 02/14/18 23:58 Gram Stain - Final Leg - Anaerobic Tube/Swab Laboratory Results 02/17/18 05:42 02/16/18 04:25 02/16/18 02/17/18 02/18/18 05:59 05:59 05:59 Intake Total 2750 1350 Output Total 3300 1700 Balance -550 -350 12 20 blood cultures x2 are pending February 14 blood cultures 1/4 bottles with coagulase-negative Staphylococcus , strep sanguinous, and MRSA, JOSH to vancomycin of 1 - Physical Exam General Appearance: no apparent distress, obese EENT: poor dentition, other (Patient has a fairly large ulceration at the tip of her tongue, both the top and bottom surface. This is quite painful. No ulcerations elsewhere. Poor dentition.) Respiratory: lungs clear Cardiac/Chest: systolic murmur (Faint, 1/6 heard at the left upper and lower sternal borders) Extremities: other (Right lower extremity clearly edematous compared to the left. I did not take the Kerlix down. Some exfoliation of her epidermis along her foot) Abdomen: non-tender, soft Skin: No embolic lesions ICD10 Worksheet Patient Problems: Problems Problem Status Onset Cellulitis of lower extremity Acute
[2018-02-17] MEDS: VANCOMYCIN 1.5 GM in D5W 250 ML IV SCH ×2 (12:00→22:09)
--- NOTE | 2018-02-17 12:11 | ECHO ---
[email or web address] [address] [address] Main: [phone] Fax: Transthoracic Echocardiogram Name: VENITA VASQUEZ MR#: [id number] Study Date: 02/15/2018 Study Time: 10:19 AM Date of : 1965 Age: 52 year(s) Height: 160 cm (63 in.) Weight: 103.87 kg (229 lb.) BSA: 2.05 m2 Gender: Female Examination: Echo Indication: ?CHF Image Quality: Technically Difficult Contrast: Requested by: Shaun Jules BP: / Heart Rate: Rhythm: Indication: ?CHF Procedure Staff [employer] Associate: Radha Davis [facility] Reading Physician: Tommie Alfredo MD Requesting Provider: Conclusions: Normal size left ventricle. Normal global systolic LV function. The ejection fraction is visually estimated to be 60 %. No regional wall motion abnormality. Normal diastolic LV function. Trivial tricuspid valve regurgitation. There are no significant valvular abnormalities. Measurements: Chambers Valvular Assessment AV/MV Valvular Assessment TV/PV Normal Normal Normal Name Value Range Name Value Range Name Value Range Ao Vi (2D): 2.7 cm (1.4 cm-2.6 AV Vmax: 1.97 m/s (1 m/s-1.7 PV Vmax: 1.57 m/s (0.6 m/s-0.9 cm) m/s) m/s) IVSd (2D): 0.9 cm (0.6 cm-1.1 AV maxP mmHg ( - ) PV PGmax: 10 mmHg ( - ) cm) AV meanP mmHg ( - ) LVDd (2D): 4.6 cm (3.9 cm-5.3 LVOT Vmax: 1.44 m/s (0.7 m/s-1.1 cm) m/s) LVDs (2D): 3.2 cm (2.1 cm-4 KARLA (Vmax): 2.3 cm2 ( - ) cm) KARLA (VTI): 2.3 cm ( - ) LVPWd (2D): 0.8 cm ( - ) MV E Vmax: 0.99 m/s ( - ) LVOTd 2.0 cm 2.0 cm mm MV A Vmax: 0.74 m/s ( - ) Visual EF: 60 % MV E/A: 1.34 ( - ) MV PHT: 0.056 s ( - ) MVA (PHT): 3.9 s ( - ) Continued Measurements: Chambers Valvular Assessment AV/MV Patient: VENITA VASQUEZ Study Date: 02/15/2018 Page 1 of 2 10:19 AM Name Value Name Value LADs: 3.6 cm MV DecTime: 194 m/s LADs Lon.5 cm MV E' Septal: 0.12 m/s LA Area: 19.3 cm2 MV E/E' Septal: 7.90 LA Volume: 57 ml MV E/E' Lateral: 7.00 LA Volume Index: 27.8 ml/m2 RA Area: 13.0 cm2 Additional Vessels Name Value Ao Ascendin.6 cm Findings: Left Ventricle: Normal size left ventricle. No LV hypertrophy. Normal global systolic LV function. The ejection fraction is visually estimated to be 60 %. No regional wall motion abnormality. Normal diastolic LV function. Right Ventricle: Normal size right ventricle. Normal RV function. Left Atrium: The left atrium is normal in size. Right Atrium: The right atrium is normal in size. Mitral Valve: The mitral valve is normal in appearance and function. Trivial mitral valve regurgitation. No mitral stenosis is present. Aortic Valve: The aortic valve is tri-leaflet. There is no significant aortic valve regurgitation. No aortic valve stenosis is present. Tricuspid Valve: The tricuspid valve is normal in appearance and function. Trivial tricuspid valve regurgitation. Pulmonic Valve: The pulmonic valve is normal in appearance and function. Aorta: The aorta is normal. IVC: The IVC is normal sized. Pericardium: No pericardial effusion. Exam Comments: Technically difficult due to body habitus, supine due to swollen leg. (No Signature Object) Patient: VENITA VASQUEZ Study Date: 02/15/2018 Page 2 of 2 10:19 AM [id number]
[2018-02-17] MEDS: ONDANSETRON 4 MG/2 ML VIAL IVP PRN ×3 (13:11→23:31)
--- NOTE | 2018-02-17 13:12 | HOSPPROG ---
Hospitalist Progress Note Assessment/Plan: 52 yo female with stasis dermatitis admitted with RLE cellulitis # RLE cellulitis - likely d/t venous insufficiency, occurred while on keflex - cont vanc - ID following - wound care following #Bacteremia: -BCX /2: MRSA and Streptococcus -Wound Cx: MRSA, Serratia, Pseudomonas, Proteus # morbid obesity # hx gastric bypass - potentially impairing PO absorption # anemia - s/p transfusion 1U PRBC on 02/15 -suspect chronic oozing from leg # reported CHF Not in exacerbation - unclear if systolic/diastolic. # DM2 - with Hyperglycemia -Lantus was increased -check A1C -Cont ISS #Millie Vaginitis: on Fluconazole #Chronic Pain Syndrome Plan: -Abx per ID -TTE needs to be read per nursing. Cards aware -Restart home Oxycontin TID. Use Fentanyl for dressing changes only -DM mgmt -start stool softner -May need a PICC in the future, can hold until ok with ID Subjective: still with intermittent pain. requiring Fentany. afebrile. glucose is better Objective: Vital Signs Temp Pulse Resp BP Pulse Ox 36.6 C 96 16 143/68 H 98 02/17/18 08:18 02/17/18 11:46 02/17/18 11:46 02/17/18 11:46 02/17/18 11:46 Microbiology 02/14/18 23:58 Gram Stain - Final Leg - Anaerobic Tube/Swab Laboratory Results 02/17/18 05:42 02/16/18 04:25 02/16/18 02/17/18 02/18/18 05:59 05:59 05:59 Intake Total 2750 1350 Output Total 3300 1700 Balance -550 -350 PT 14.1 SEC (12.0-15.0) 02/14/18 16:08 INR 1.07 (0.83-1.16) 02/14/18 16:08 - Physical Exam Constitutional: chronically ill appearing Eyes: PERRL Ears, Nose, Mouth, Throat: moist mucous membranes, hearing normal Cardiovascular: regular rate and rhythym, edema Respiratory: no respiratory distress, no rales or rhonchi, clear to auscultation Gastrointestinal: normoactive bowel sounds, soft, non-tender abdomen Skin: warm Neurologic: AAOx3 Psychiatric: interacting appropriately, not anxious, not encephalopathic Lymph, Heme, Immunologic: No petechiae ICD10 Worksheet Patient Problems: Problems Problem Status Onset Cellulitis of lower extremity Acute
[2018-02-17] MEDS: oxyCODONE IR 15 MG TAB PO PRN ×2 (14:09→17:47)
[2018-02-17] MEDS: oxyCODONE IR 5 MG TAB PO SCH ×2 (15:10→22:09)
[2018-02-17] MEDS: PANTOPRAZOLE SODIUM 40 MG TAB PO SCH (22:09)
[2018-02-18] MEDS: ZIPRASIDONE HCL 40 MG CAP PO SCH ×2 (00:07→23:43)
[2018-02-18] MEDS: INSULIN GLARGINE 100 UNITS/ML UNIT SC SCH ×2 (00:07→23:44)
[2018-02-18] MEDS: lamoTRIgine 100 MG TAB PO SCH ×2 (00:07→23:43)
[2018-02-18] MEDS: PROMETHAZINE HCL 25 MG/ML INJ IVP PRN ×3 (00:36→20:37)
[2018-02-18] MEDS: oxyCODONE IR 15 MG TAB PO PRN ×5 (00:54→20:38)
[2018-02-18 05:21] LABS: PLATELET COUNT 202 10^3/uL (150-400)
[2018-02-18] MEDS: GABAPENTIN 100 MG CAP PO SCH ×3 (08:53→20:38)
[2018-02-18] MEDS: ALLOPURINOL 100 MG TAB PO SCH ×2 (08:53→20:39)
[2018-02-18] MEDS: POTASSIUM CL 20 MEQ TAB PO SCH (08:54)
[2018-02-18] MEDS: oxyCODONE IR 5 MG TAB PO SCH ×3 (08:54→23:43)
[2018-02-18] MEDS: FUROSEMIDE 40 MG TAB PO SCH (08:55)
[2018-02-18] MEDS: busPIRone 10 MG TAB PO SCH ×3 (08:55→20:42)
[2018-02-18] MEDS: FLUCONAZOLE 100 MG TAB PO SCH (08:55)
[2018-02-18] MEDS: ENOXAPARIN 40 MG/0.4 ML SYR SC SCH ×2 (09:04→20:37)
[2018-02-18] MEDS: INSULIN LISPRO 100 UNIT/ML SC SCH ×3 (09:05→19:42)
[2018-02-18] MEDS: VANCOMYCIN 1.5 GM in D5W 250 ML IV SCH ×2 (09:05→20:37)
[2018-02-18] MEDS: POLYETHYLENE GLYCOL 3350 17 GM PKT PO PRN (09:49)
[2018-02-18] MEDS: hydrOXYzine HCL 25 MG TAB PO PRN ×2 (11:29→20:40)
[2018-02-18] MEDS: ONDANSETRON 4 MG/2 ML VIAL IVP PRN ×3 (11:52→23:43)
[2018-02-18] MEDS: fentaNYL 100 MCG/2 ML INJ IVP PRN (11:57)
--- NOTE | 2018-02-18 13:28 | HOSPPROG ---
Hospitalist Progress Note Assessment/Plan: 52 yo female with stasis dermatitis admitted with RLE cellulitis # RLE cellulitis - likely d/t venous insufficiency, occurred while on keflex - cont vanc - ID following - wound care following #Bacteremia: -BCX 02/14: 1/2: MRSA and Streptococcus -bcx104/20: NGTF -Wound Cx: MRSA, Serratia, Pseudomonas, Proteus # morbid obesity #Tongue Ulcer: negative viral studies # hx gastric bypass - potentially impairing PO absorption # anemia - s/p transfusion 1U PRBC on 02/15 -suspect chronic oozing from leg -stable # reported CHF Not in exacerbation - unclear if systolic/diastolic. # DM2 - with Hyperglycemia -Lantus was increased -A1C: 6.7 -Cont ISS #Millie Vaginitis: on Fluconazole #Chronic Pain Syndrome: on home meds Plan: -Abx per ID -TTE unremarkable -Pain mgt -DM mgmt -stool softner -May need a PICC in the future Subjective: still with intermittent pain. afebrile. no resp issues. Objective: Vital Signs Temp Pulse Resp BP Pulse Ox 36.6 C 118 H 16 173/83 H 99 02/18/18 11:45 02/18/18 11:45 02/18/18 11:45 02/18/18 11:45 02/18/18 11:45 Microbiology 02/17/18 11:15 Herpes Simplex Virus I (PCR) - Final Oral - Other Hsv-1 Dna Not Detected Herpes Simplex Virus II (PCR) - Final Hsv-2 Dna Not Detected Varicella-Zoster Group DNA (PCR) - Final Vzv Dna Not Detected HSV/VZV PCR Additional Information - Final 02/14/18 23:58 Gram Stain - Final Leg - Anaerobic Tube/Swab Wound Culture - Final MRSA Serratia Liquefaciens Pseudomonas Aeruginosa Proteus Mirabilis Laboratory Results 02/18/18 05:12 02/18/18 05:12 02/17/18 02/18/18 02/19/18 05:59 05:59 05:59 Intake Total 1350 1200 Output Total 1700 750 Balance -350 450 PT 14.1 SEC (12.0-15.0) 02/14/18 16:08 INR 1.07 (0.83-1.16) 02/14/18 16:08 - Physical Exam Constitutional: no apparent distress Eyes: PERRL, EOMI Ears, Nose, Mouth, Throat: moist mucous membranes, hearing normal Cardiovascular: regular rate and rhythym, No edema Respiratory: no respiratory distress, no rales or rhonchi, clear to auscultation Gastrointestinal: normoactive bowel sounds, soft, non-tender abdomen Skin: warm Neurologic: AAOx3 Psychiatric: interacting appropriately, not anxious, not encephalopathic ICD10 Worksheet Patient Problems: Problems Problem Status Onset Cellulitis of lower extremity Acute
[2018-02-18] MEDS ORDERED: ALTEPLASE 2 MG VIAL IVP PRN (13:48)
[2018-02-18] MEDS ORDERED: CYANO/VITAMIN B12 1000 MCG/ML VIAL IM ONE (14:00)
[2018-02-18] MEDS: HYDROmorphONE/DILAUDID 2 MG TAB PO PRN (14:03)
[2018-02-18] MEDS ORDERED: LIDOCAINE 2% VISCOUS 15 ML UDCUP PO PRN (14:04)
--- NOTE | 2018-02-18 14:27 | WOCRNPDOC ---
[facility] Advanced Assessment Note - Skin Integrity Problem, Advanced Assess Right Posterior Lower Leg Dressing Type: Kerlix, Mepilex Transfer Dressing Description: Intact, Shadowed Closure Description: Not Approximated Exudate Color: Reddish/Yellow Exudate Characteristic(s): Serosanguinous Integumentary Issue Intervention: Dressing Changed, Lotion/Cream Applied, Silver Gel Applied Olamide Wound Tissue: Swollen, Intact, Painful/Tender Olamide Wound Swelling: Moderate Wound Bed Color: [place] Wound Bed Constitution: Granulation Tissue (60%), Adhered Slough (40%) Wound Edges: Attached, Well Defined Skin Integrity Problem Comment: Right leg is much less edematous and red than several days ago. After SANDY Bocanegra premedicated patient for pain, right leg dressing taken down. Patient still screams out in pain. Leg cleaned with foaming cleanser and gently exfoliated with warmed washcloth to patient tolerance. Atrac-tain cream applied to unopen areas. Wound bed with significant reduction in amount of slough since Wednesday. Wound bed now moist with granulation tissue present. Patient unable to tolerate my attempt at mechanical debridement of adherant slough. Patient with negative stemmers sign. Given the success of debridement to this point, will continue use of silvasorb and absorbant dressings. SANDY Bocanegra reports that wound continues to weep and saturate dressings, although in my assessment today, dressings are adherant to wound bed. At this point, will also continue daily dressing changes. Wound care will round again early next week to evaluate continued need for this. Silvasorb applied to super abosorbant dressing and then placed on wound bed and wrapped in kerlix. Patient tolerated well. Dr. Bello sent images of wound bed. Right Lower Lateral Leg Venous Stasis Ulcer Dressing Type: Kerlix Dressing Description: Intact, Shadowed Closure Description: Not Approximated Exudate Color: Reddish/Yellow Exudate Characteristic(s): Serosanguinous Integumentary Issue Intervention: Dressing Changed, Lotion/Cream Applied, Silver Gel Applied Olamide Wound Tissue: Erythema, Intact, Thin, Dry, Painful/Tender Wound Bed Color: [place] Wound Bed Constitution: Red/[place] - Non Granular Tissue Wound Edges: Attached, Well Defined Skin Integrity Problem Comment: Wound bed cleaned with NS while removing adhered dressing. Olamide wound skin cleaned with foaming cleanser and Atrac-Tain cream applied. Silvasorb applied to absorbant dressing and then applied to wound bed and wrapped with Kerlix. Wound care will round again on patient early next week. Right Heel Pressure Injury Olamide Wound Tissue: Intact, Painful/Tender Wound Bed Color: Purple, Red Pressure Injury Stage: Deep Tissue Injury (DTI) Pressure Injury Present on Admit: Yes Skin Integrity Problem Comment: Patient encouraged to wear heel boot to the right foot.
[2018-02-18] MEDS: MULTIVITAMINS 1 EACH TAB PO SCH (15:24)
--- NOTE | 2018-02-18 16:10 | PCMIDPN ---
Assessment/Plan: Assessment/Plan: * MRSA bacteremia due to right lower extremity cellulitis with underlying chronic venous insufficiency/stasis dermatitis and lymphedema: Marked clinical improvement. Repeat blood cultures are showing no growth to date. MRSA only isolated in 1/2 sets. Given repeat culture showing no growth, will proceed with PICC line placement. Based on low-grade bacteremia, will plan for 2 weeks of therapy with vancomycin. Vancomycin trough appropriate on current dose. * Right lower extremity cellulitis: Marked clinical improvement with vancomycin therapy. Continue local wound care for underlying venous stasis dermatitis and elevation for lymphedema. * Tongue ulcer: PCR studies negative for HSV and VZV. Likely apthous etiology. Will begin viscous lidocaine swish and spit. 02/18/18 16:07 02/18/18 16:09 Subjective: Patient feels much better. Still with pain over right lower extremity with dressing change. Objective: Vital Signs Temp Pulse Resp BP Pulse Ox 36.6 C 118 H 16 141/70 H 99 02/18/18 11:45 02/18/18 11:45 02/18/18 11:45 02/18/18 14:08 02/18/18 11:45 Microbiology 02/17/18 11:15 Herpes Simplex Virus I (PCR) - Final Oral - Other Hsv-1 Dna Not Detected Herpes Simplex Virus II (PCR) - Final Hsv-2 Dna Not Detected Varicella-Zoster Group DNA (PCR) - Final Vzv Dna Not Detected HSV/VZV PCR Additional Information - Final 02/14/18 23:58 Gram Stain - Final Leg - Anaerobic Tube/Swab Wound Culture - Final MRSA Serratia Liquefaciens Pseudomonas Aeruginosa Proteus Mirabilis Laboratory Results 02/18/18 05:12 02/18/18 05:12 02/17/18 02/18/18 02/19/18 05:59 05:59 05:59 Intake Total 1350 1200 Output Total 1700 750 Balance -350 450 Vancomycin 1.5 g IV q.12 hours # 4 Fluconazole 100 mg orally daily # 4 Tongue ulcer negative for HSV or VZV by PCR - Physical Exam General Appearance: alert, no apparent distress, obese EENT: other (Ulceration over right side of tongue laterally) Respiratory: lungs clear, No respiratory distress Cardiac/Chest: regular rate, rhythm Extremities: inflammation (Right lower extremity dressed; images from wound care nursing staff reviewed; cellulitis markedly decreased) Abdomen: non-tender, No distended Skin: No embolic lesions ICD10 Worksheet Patient Problems: Problems Problem Status Onset Cellulitis of lower extremity Acute
--- NOTE | 2018-02-18 16:48 | ASMTCMCOM ---
CM Note CM Note Notes: Patient seen by [facility] she will need IV ANTB and home health care. PICC to be placed. Referrals in allscripts to [facility] and [facility] agencies. Patient hoping to go home for holiday, Plan: Home with services. Date Signed: 02/18/2018 04:47 PM Electronically Signed By:Sally Morataya RN
[2018-02-18] MEDS: PANTOPRAZOLE SODIUM 40 MG TAB PO SCH (20:39)
[2018-02-19] MEDS: oxyCODONE IR 15 MG TAB PO PRN ×3 (06:30→18:46)
[2018-02-19] MEDS: VANCOMYCIN 1.5 GM in D5W 250 ML IV SCH ×2 (09:16→22:21)
[2018-02-19] MEDS: POTASSIUM CL 20 MEQ TAB PO SCH (09:18)
[2018-02-19] MEDS: oxyCODONE IR 5 MG TAB PO SCH ×3 (09:18→22:26)
[2018-02-19] MEDS: ALLOPURINOL 100 MG TAB PO SCH ×2 (09:18→22:27)
[2018-02-19] MEDS: MULTIVITAMINS 1 EACH TAB PO SCH (09:18)
[2018-02-19] MEDS: FLUCONAZOLE 100 MG TAB PO SCH (09:18)
[2018-02-19] MEDS: hydrOXYzine HCL 25 MG TAB PO PRN ×4 (09:20→22:26)
[2018-02-19] MEDS: FUROSEMIDE 40 MG TAB PO SCH (09:20)
[2018-02-19] MEDS: busPIRone 10 MG TAB PO SCH ×3 (09:20→22:27)
[2018-02-19] MEDS: GABAPENTIN 100 MG CAP PO SCH ×3 (09:21→22:26)
[2018-02-19] MEDS: INSULIN LISPRO 100 UNIT/ML SC SCH ×3 (09:52→17:59)
[2018-02-19] MEDS: ENOXAPARIN 40 MG/0.4 ML SYR SC SCH ×2 (09:52→22:27)
[2018-02-19] MEDS: PROMETHAZINE HCL 25 MG/ML INJ IVP PRN ×3 (09:56→22:18)
[2018-02-19] MEDS: POLYETHYLENE GLYCOL 3350 17 GM PKT PO PRN (10:15)
[2018-02-19] MEDS: HYDROmorphONE/DILAUDID 2 MG TAB PO PRN ×2 (10:24→22:50)
[2018-02-19] MEDS: ONDANSETRON 4 MG/2 ML VIAL IVP PRN ×2 (12:56→18:51)
--- NOTE | 2018-02-19 13:23 | HOSPPROG ---
Hospitalist Progress Note Assessment/Plan: 52 yo female with stasis dermatitis admitted with RLE cellulitis # RLE cellulitis - likely d/t venous insufficiency, occurred while on keflex - cont vanc - ID following - wound care following #Bacteremia: -BCX 02/14: 1/2: MRSA and Streptococcus -bcx104/20: NGTF -Wound Cx: MRSA, Serratia, Pseudomonas, Proteus # morbid obesity #Tongue Ulcer: negative viral studies. -Viscous Lidocaine # hx gastric bypass - potentially impairing PO absorption # anemia - s/p transfusion 1U PRBC on 02/15 -suspect chronic oozing from leg -stable # reported CHF Not in exacerbation - unclear if systolic/diastolic. # DM2 - with Hyperglycemia, now improving -Lantus was increased -A1C: 6.7 -Cont ISS #Millie Vaginitis: on Fluconazole #Chronic Pain Syndrome: on home meds Plan: -Abx per ID -TTE unremarkable -Pain mgt, no changes today -DM mgmt, no changes today -stool softner -will check H/H in a.m -May need a PICC in the future Subjective: no cp or sob. no n/v. pain is well controlled Objective: Vital Signs Temp Pulse Resp BP Pulse Ox 36.6 C 98 18 129/65 H 95 02/19/18 11:46 02/19/18 11:46 02/19/18 11:46 02/19/18 11:46 02/19/18 11:46 Microbiology 02/17/18 11:15 Herpes Simplex Virus I (PCR) - Final Oral - Other Hsv-1 Dna Not Detected Herpes Simplex Virus II (PCR) - Final Hsv-2 Dna Not Detected Varicella-Zoster Group DNA (PCR) - Final Vzv Dna Not Detected HSV/VZV PCR Additional Information - Final 02/14/18 23:58 Gram Stain - Final Leg - Anaerobic Tube/Swab Wound Culture - Final MRSA Serratia Liquefaciens Pseudomonas Aeruginosa Proteus Mirabilis Laboratory Results 02/18/18 05:12 02/18/18 05:12 02/18/18 02/19/18 02/20/18 05:59 05:59 05:59 Intake Total 1200 2000 Output Total 750 Balance 450 2000 PT 14.1 SEC (12.0-15.0) 02/14/18 16:08 INR 1.07 (0.83-1.16) 02/14/18 16:08 - Physical Exam Constitutional: chronically ill appearing Eyes: PERRL, EOMI Ears, Nose, Mouth, Throat: moist mucous membranes, hearing normal, ears appear normal Cardiovascular: regular rate and rhythym, No edema Respiratory: no respiratory distress, no rales or rhonchi, clear to auscultation Gastrointestinal: normoactive bowel sounds, soft, non-tender abdomen Skin: warm Neurologic: AAOx3 Psychiatric: interacting appropriately, not anxious, not encephalopathic Lymph, Heme, Immunologic: No petechiae ICD10 Worksheet Patient Problems: Problems Problem Status Onset Cellulitis of lower extremity Acute
[2018-02-19] MEDS: fentaNYL 100 MCG/2 ML INJ IVP PRN (14:30)
--- NOTE | 2018-02-19 16:30 | PCMIDPN ---
Assessment/Plan: Assessment/Plan: * MRSA bacteremia due to right lower extremity cellulitis with underlying chronic venous insufficiency/stasis dermatitis and lymphedema: Continued clinical improvement. Will repeat vancomycin trough to ensure level remains therapeutic. Anticipate 2 week course of therapy as MRSA isolated in 1/2 sets of blood cultures with rapid clearance. Case management investigating home IV antibiotic therapy which once arrange will allow for patient discharge. * Right lower extremity cellulitis: Marked clinical improvement with vancomycin therapy. Continue elevation and ongoing local wound care. * Tongue ulcer: PCR studies negative for HSV and VZV. Likely apthous etiology. Continue viscous lidocaine swish and spit. 02/19/18 16:27 Subjective: Patient continues to feel improved. PICC line placed yesterday. Objective: Vital Signs Temp Pulse Resp BP Pulse Ox 36.6 C 98 18 129/65 H 95 02/19/18 11:46 02/19/18 11:46 02/19/18 11:46 02/19/18 11:46 02/19/18 11:46 Microbiology 02/17/18 11:15 Herpes Simplex Virus I (PCR) - Final Oral - Other Hsv-1 Dna Not Detected Herpes Simplex Virus II (PCR) - Final Hsv-2 Dna Not Detected Varicella-Zoster Group DNA (PCR) - Final Vzv Dna Not Detected HSV/VZV PCR Additional Information - Final Laboratory Results 02/18/18 05:12 02/18/18 05:12 02/18/18 02/19/18 02/20/18 05:59 05:59 05:59 Intake Total 1200 2000 Output Total 750 Balance 450 2000 Vancomycin # 5 Fluconazole # 5 - Physical Exam General Appearance: alert, no apparent distress, obese EENT: No scleral icterus Respiratory: lungs clear, No respiratory distress Cardiac/Chest: regular rate, rhythm Extremities: inflammation (Dressings in place; erythema at superior margins and inferior margins markedly reduced) Abdomen: non-tender Lymphatic: other (Mild pain remains in right thigh lymphangitic distribution) ICD10 Worksheet Patient Problems: Problems Problem Status Onset Cellulitis of lower extremity Acute
--- NOTE | 2018-02-19 17:45 | ASMTCMCOM ---
CM Note CM Note Notes: Spoke with ID doc regarding pt. Pt could possibly discharge tomorrow with twice daily Vanco infusions in PICC line and daily wound care. ID to evaluate vanco trough tomorrow to determine if Vanco can be reduced to daily and wound care reduced to every other day. [facility] able to accept pt and updates were sent today, however 10 or more home care agencies have declined pt due to lack of staffing and acuity of pt. Several more agencies were contacted with referrals and have yet to respond. If care needs decrease, agencies may be more able to accept patient before the holidays. CM to follow. D/C Plan: Home with home infusion, [facility] RN/PT/OT Date Signed: 02/19/2018 05:45 PM Electronically Signed By:Lary Polanco
[2018-02-19] MEDS: PANTOPRAZOLE SODIUM 40 MG TAB PO SCH (22:27)
[2018-02-20] MEDS: ZIPRASIDONE HCL 40 MG CAP PO SCH (00:27)
[2018-02-20] MEDS: lamoTRIgine 100 MG TAB PO SCH (00:28)
[2018-02-20] MEDS: INSULIN GLARGINE 100 UNITS/ML UNIT SC SCH (00:28)
[2018-02-20] MEDS: oxyCODONE IR 15 MG TAB PO PRN ×4 (00:28→20:39)
[2018-02-20] MEDS: hydrOXYzine HCL 25 MG TAB PO PRN ×3 (06:58→20:55)
[2018-02-20] MEDS: INSULIN LISPRO 100 UNIT/ML SC SCH ×3 (08:00→19:38)
[2018-02-20] MEDS: POTASSIUM CL 20 MEQ TAB PO SCH (10:29)
[2018-02-20] MEDS: GABAPENTIN 100 MG CAP PO SCH ×3 (10:30→22:11)
[2018-02-20] MEDS: FUROSEMIDE 40 MG TAB PO SCH (10:31)
[2018-02-20] MEDS: FLUCONAZOLE 100 MG TAB PO SCH (10:32)
[2018-02-20] MEDS: oxyCODONE IR 5 MG TAB PO SCH ×3 (10:32→22:11)
[2018-02-20] MEDS: ALLOPURINOL 100 MG TAB PO SCH ×2 (10:33→20:39)
[2018-02-20] MEDS: busPIRone 10 MG TAB PO SCH ×3 (10:33→22:10)
[2018-02-20] MEDS: MULTIVITAMINS 1 EACH TAB PO SCH (10:33)
[2018-02-20] MEDS: ENOXAPARIN 40 MG/0.4 ML SYR SC SCH ×2 (10:34→22:12)
[2018-02-20] MEDS: PROMETHAZINE HCL 25 MG/ML INJ IVP PRN ×3 (10:41→22:40)
[2018-02-20] MEDS: POLYETHYLENE GLYCOL 3350 17 GM PKT PO PRN (10:47)
[2018-02-20] MEDS: VANCOMYCIN 1.5 GM in D5W 250 ML IV SCH (12:39)
[2018-02-20] MEDS: ONDANSETRON 4 MG/2 ML VIAL IVP PRN (14:24)
--- NOTE | 2018-02-20 15:18 | HOSPPROG ---
Hospitalist Progress Note Assessment/Plan: 52 yo female with stasis dermatitis admitted with RLE cellulitis # RLE cellulitis - likely d/t venous insufficiency, occurred while on keflex - cont vanc via PICC - ID following - wound care following #Bacteremia: -BCX 02/14: 1/2: MRSA and Streptococcus -bcx104/20: NGTF -Wound Cx: MRSA, Serratia, Pseudomonas, Proteus # morbid obesity #Tongue Ulcer: negative viral studies. -Viscous Lidocaine # hx gastric bypass - potentially impairing PO absorption # anemia - s/p transfusion 1U PRBC on 02/15 -Etiology unclear. Microcytic but also chronic absorption problems. Will start Iron. Will order B12/Folate. She takes B12 supplementation, but isnt always compliant. No e/o bleed. Negative Hemoccult. No vaginal bleeding. Will get an additional unit today # reported CHF Not in exacerbation - unclear if systolic/diastolic. # DM2 - with Hyperglycemia, now improving -Lantus was increased -A1C: 6.7 -Cont ISS #Millie Vaginitis: on Fluconazole #Chronic Pain Syndrome: on home meds Plan: -Abx per ID -TTE unremarkable -Pain mgt, no changes today -DM mgmt, no changes today -stool softner -transfuse 1 unit PRBC today. Additional anemia w/u -awaiting placement with [facility] for abx administration. Can likely d/c once this is arranged Subjective: no cp or sob. no n/v. Objective: Vital Signs Temp Pulse Resp BP Pulse Ox 36.8 C 83 16 121/67 H 97 02/20/18 08:00 02/20/18 08:00 02/20/18 08:00 02/20/18 08:00 02/20/18 08:00 Laboratory Results 02/20/18 05:00 02/20/18 05:00 02/19/18 02/20/18 02/21/18 05:59 05:59 05:59 Intake Total 1999 1300 Balance 1999 1300 PT 14.1 SEC (12.0-15.0) 02/14/18 16:08 INR 1.07 (0.83-1.16) 02/14/18 16:08 - Physical Exam Constitutional: no apparent distress Eyes: PERRL, EOMI Ears, Nose, Mouth, Throat: moist mucous membranes, hearing normal Cardiovascular: regular rate and rhythym, No edema Respiratory: no respiratory distress, no rales or rhonchi, clear to auscultation Gastrointestinal: normoactive bowel sounds, soft, non-tender abdomen Skin: warm Neurologic: AAOx3 Psychiatric: interacting appropriately, not anxious, not encephalopathic Lymph, Heme, Immunologic: No petechiae ICD10 Worksheet Patient Problems: Problems Problem Status Onset Cellulitis of lower extremity Acute
--- NOTE | 2018-02-20 17:42 | PCMIDPN ---
Assessment/Plan: Assessment/Plan: * MRSA bacteremia due to right lower extremity cellulitis with underlying chronic venous insufficiency/stasis dermatitis and lymphedema: No signs or symptoms of recurrent bacteremia. Repeat blood cultures are no growth. Plan 14 days of vancomycin as outlined previously. Plan weekly CBC, CMP and twice weekly creatinine/vancomycin trough on therapy. Reviewed with case management with probable discharge home in a.m. With home health care for outpatient IV antibiotic therapy. * Right lower extremity cellulitis: Continued resolution of cellulitis with ongoing vancomycin therapy. Will be important to continue lower extremity elevation and ongoing wound care. 02/20/18 17:39 Subjective: Patient feels significantly improved. Less right lower extremity pain. Objective: Vital Signs Temp Pulse Resp BP Pulse Ox 36.7 C 104 H 16 137/76 H 98 02/20/18 17:06 02/20/18 17:06 02/20/18 17:06 02/20/18 17:06 02/20/18 17:06 Laboratory Results 02/20/18 05:00 02/20/18 05:00 02/19/18 02/20/18 02/21/18 05:59 05:59 05:59 Intake Total 1999 1300 Balance 1999 1300 Vancomycin # 6 Fluconazole # 6 Blood cultures x2 02/17/18 no growth Laboratory Tests 02/20/18 10:30 Vancomycin Trough 12.7 - Physical Exam General Appearance: alert, no apparent distress EENT: No scleral icterus, No thrush Extremities: inflammation (Right lower extremity dressed; erythema over foot fully resolved and above dressing margin fully resolved) Abdomen: non-tender, No distended - Line/s RUE PICC Lines: No drainage, No erythema ICD10 Worksheet Patient Problems: Problems Problem Status Onset Cellulitis of lower extremity Acute
--- NOTE | 2018-02-20 17:45 | PDIAF ---
- Diagnosis Diagnosis: MRSA bacteremia, right lower extremity cellulitis Code Status: Full Code - Medication Management [facility] Antibiotics: Vancomycin 1.5 g IV q.12 hours [facility] Antibiotic Stop Date: 03/03/18 Discharge Medications: electronically signed and located in the Home Medication List. PICC Care - Routine: Yes - Orders Services needed: Home Jail Care Face to Face: I certify that this patient was under my care and that I had the required [id number] encounter meeting the encounter requirements on the discharge day. My findings support the fact that the patient is homebound as defined in Home Care Face to Face Continued: CMS Chapter 7 Medicare Benefits Manual 30.1.1 , The condition of the patient is such that there exists a normal inability to leave home and consequently, leaving home would require a considerable and taxing effort. Isolation Type: Contact Isolation - Labs/Radiology CBC w/diff Date: 02/23/18 CMP Date: 02/23/18 Creatinine Date: 02/27/18 Vanco Trough Date and Time: 02/23/2018 and 02/27/2018 Call or Fax Lab and Imaging Results to: Dr. Bello, - Follow Up Care Current Providers and Referrals: Patient,NotPresent [Unknown] - As per Instructions
[2018-02-20] MEDS: fentaNYL 100 MCG/2 ML INJ IVP PRN (18:05)
[2018-02-20] MEDS: FERROUS SULFATE 325 MG TAB PO SCH (20:39)
[2018-02-20] MEDS: PANTOPRAZOLE SODIUM 40 MG TAB PO SCH (22:11)
[2018-02-21] MEDS: lamoTRIgine 100 MG TAB PO SCH (00:20)
[2018-02-21] MEDS: ZIPRASIDONE HCL 40 MG CAP PO SCH (00:21)
[2018-02-21] MEDS: INSULIN GLARGINE 100 UNITS/ML UNIT SC SCH (00:22)
[2018-02-21] MEDS: VANCOMYCIN 1.5 GM in D5W 250 ML IV SCH ×2 (00:22→12:09)
[2018-02-21] MEDS: oxyCODONE IR 15 MG TAB PO PRN ×3 (05:13→13:30)
[2018-02-21 05:30] LABS: PLATELET COUNT 179 10^3/uL (150-400)
[2018-02-21 08:15] VITALS: BP 148/79
[2018-02-21] MEDS: INSULIN LISPRO 100 UNIT/ML SC SCH ×2 (08:16→12:24)
[2018-02-21] MEDS: PROMETHAZINE HCL 25 MG/ML INJ IVP PRN ×2 (08:27→13:29)
[2018-02-21] MEDS: oxyCODONE IR 5 MG TAB PO SCH ×2 (08:30→15:30)
[2018-02-21] MEDS: busPIRone 10 MG TAB PO SCH (08:32)
[2018-02-21] MEDS: FERROUS SULFATE 325 MG TAB PO SCH (08:32)
[2018-02-21] MEDS: GABAPENTIN 100 MG CAP PO SCH ×2 (08:32→15:31)
[2018-02-21] MEDS: MULTIVITAMINS 1 EACH TAB PO SCH (08:33)
[2018-02-21] MEDS: hydrOXYzine HCL 25 MG TAB PO PRN (08:33)
[2018-02-21] MEDS: ALLOPURINOL 100 MG TAB PO SCH (08:33)
[2018-02-21] MEDS: FLUCONAZOLE 100 MG TAB PO SCH (08:33)
[2018-02-21] MEDS: POTASSIUM CL 20 MEQ TAB PO SCH (08:34)
[2018-02-21] MEDS: FUROSEMIDE 40 MG TAB PO SCH (08:34)
[2018-02-21] MEDS: ENOXAPARIN 40 MG/0.4 ML SYR SC SCH (10:42)
--- NOTE | 2018-02-21 12:08 | PDIAF ---
- Diagnosis Diagnosis: MRSA bacteremia, right lower extremity cellulitis Code Status: Full Code - Medication Management Patient Resource Coordinator Antibiotics: Vancomycin 1.5 g IV q.12 hours Retirement Antibiotic Stop Date: 03/03/18 Discharge Medications: electronically signed and located in the Home Medication List. PICC Care - Routine: Yes - Orders Services needed: Home [facility] Care Face to Face: I certify that this patient was under my care and that I had the required [id number] encounter meeting the encounter requirements on the discharge day. My findings support the fact that the patient is homebound as defined in Home Care Face to Face Continued: CMS Chapter 7 Medicare Benefits Manual 30.1.1 , The condition of the patient is such that there exists a normal inability to leave home and consequently, leaving home would require a considerable and taxing effort. Isolation Type: Contact Isolation Diet Recommendation: no restrictions on diet Diet Texture: Regular Texture Diet Wound Care Instructions: Patient needs to take a Percocet prior to dressing changes because it is very painful. Daily wound care. Additional Instructions: Activity as tolerated. Use a walker. - Labs/Radiology CBC w/diff Date: 02/23/18 CMP Date: 02/23/18 Creatinine Date: 02/27/18 Vanco Trough Date and Time: 02/23/2018 and 02/27/2018 Call or Fax Lab and Imaging Results to: Dr. Bello, - Follow Up Care Current Providers and Referrals: Adis Tyler MD [Primary Care Provider] - follow up in 1 week Azar Bello MD [Medical Doctor] - follow up in 2 weeks
--- NOTE | 2018-02-21 12:10 | PDDCSUM ---
Discharge Summary Discharge Summary: Date of Admission: February 14, 2018 Date of Discharge: February 21, 2018 Discharge Diagnoses: RLE cellulitis MRSA and strep bacteremia Morbid obesity Chronic venous stasis dermatitis Microcytic anemia, s/p 1uPRBC Suspected iron deficiency 2/2 chronic malabsorption DM2 Millie vaginitis Chronic pain Admission Diagnoses: Acute cellulitis Microcytic anemia Diabetes Consultants: Infectious Disease-Dr. Azar Bello. Hospital Course: The patient is a 52-year-old female with extensive history who was admitted for right leg cellulitis. Patient received IV antibiotics and wound care. She was transfused 1uPRBC for symptomatic anemia. She was found to have MRSA bacteremia secondary to right lower extremity cellulitis. Patient slowly improved and was able to be discharged with continued orders for labs, wound care, PT, OT, RN, and IV vancomycin for 14 days total. Physical Exam: General: The patient is an obese female who is alert and in no acute distress. HEENT: normocephalic, extraocular movements intact, conjunctivae clear, no lesions on face. Mucous membranes moist. Neck: trachea midline, no visible masses. Abd: Nondistended Musculoskeletal: Normal muscle tone and bulk. Neuro: cranial nerves II - XII grossly intact. Intact gross motor and sensory function. Psych: appropriate mood/affect. Skin: No pallor. Dressings on bilateral lower legs CDI. Heme/lymph: +2 bilateral pitting peripheral edema of bilateral feet. Condition: Fair. Discharged to: Home with home healthcare. Pertinent tests/labs/imaging: Hemoglobin 8.4, MCV 68.8. Blood culture-MRSA, strep sanguinous. Wound culture-MRSA, Serratia, Pseudomonas , Proteus. US RLE -no DVT. XR RLE - no fracture. Medications: Please see med rec form. Continue IV vancomycin twice a day until March 03. Continue fluconazole while on vancomycin. Special instructions: Get labs as instructed on inter agency discharge form for monitoring of antibiotics and infection. Activity as tolerated. Use a walker. Follow up: Follow up with PCP in 1 week. Follow-up with Infectious Disease in 2 weeks. > 30 minutes of total time was spent on counseling and coordination of care for this patient's discharge.
[2018-02-21] MEDS: ONDANSETRON 4 MG/2 ML VIAL IVP PRN (12:24)
--- NOTE | 2018-02-21 14:37 | ASMTCMCOM ---
CM Note CM Note Notes: Patient discussed during rounds, plan is for discharge to home with [facility] and [facility]. CM met with patient, IM delivered and signed for receipt. We discussed home care plan, [facility] will connect with her for infusion needs and [facility] RN will visit [facility]. Patient would like PT to start on . CM shared info with Galilea at [facility]. CM sent orders to [facility] and called [phone], talked with Steven, they received referral. Patient will contact family to inform of discharge. CM available to follow with any additional CM needs. Date Signed: 02/21/2018 02:37 PM Electronically Signed By:Tyra Thompson
== END 2018-02-21 16:22 | disposition home health service (06) | DRG 602 ==
LOC: EDUNIT# → OBSVTOIN 17:47 → F1N 18:46
PROVIDERS: ADMIT Internal Medicine; ATTEND Internal Medicine
PROC: 30233N1 Transfusion of Nonautologous Red Blood Cells into Peripheral Vein, Percutaneous Approach (ICD-10-PCS; 2018-02-15)
PROC: 02HV33Z Insertion of Infusion Device into Superior Vena Cava, Percutaneous Approach (ICD-10-PCS; principal; 2018-02-18)
DX: L03.115 Cellulitis of right lower limb (principal); R78.81 Bacteremia; B95.62 Methicillin resistant Staphylococcus aureus infection as the cause of diseases classified elsewhere; B95.4 Other streptococcus as the cause of diseases classified elsewhere; I87.331 Chronic venous hypertension (idiopathic) with ulcer and inflammation of right lower extremity; L97.212 Non-pressure chronic ulcer of right calf with fat layer exposed; I89.0 Lymphedema, not elsewhere classified; K12.1 Other forms of stomatitis; D50.0 Iron deficiency anemia secondary to blood loss (chronic); D51.3 Other dietary vitamin B12 deficiency anemia; D50.8 Other iron deficiency anemias; K90.89 Other intestinal malabsorption; G89.29 Other chronic pain; F11.20 Opioid dependence, uncomplicated; E66.01 Morbid (severe) obesity due to excess calories; Z68.41 Body mass index [BMI] 40.0-44.9, adult; Z98.84 Bariatric surgery status; L89.314 Pressure ulcer of right buttock, stage 4; L89.324 Pressure ulcer of left buttock, stage 4; L89.610 Pressure ulcer of right heel, unstageable; B37.3 Candidiasis of vulva and vagina; E11.9 Type 2 diabetes mellitus without complications; Z79.4 Long term (current) use of insulin; G47.33 Obstructive sleep apnea (adult) (pediatric); I50.22 Chronic systolic (congestive) heart failure; E03.9 Hypothyroidism, unspecified; M10.9 Gout, unspecified; F41.9 Anxiety disorder, unspecified; F31.9 Bipolar disorder, unspecified
CPT/HCPCS: 82607-90; 87529-90; 87798-90; 96374; 97110-GO; 97110-GP; 97116-GP; 97161-GP; 97166-GO; 97530-GO; 97535-GO; C1751; G8978-GP-CJ; G8979-GP-CI; G8987-GO-CJ; G8988-GO-CI; J0690; J1170; J1200; J1650; J1815; J2270; J2405; J2550; J3010; J3370; J3420; P9016